=== PATIENT | female | born 1965 | race Caucasian/White ===

== ENCOUNTER 2017-09-07 14:56 | Emergency (ER) | payer OTHER, MEDICAID ==
[2017-09-07 14:56] VITALS: BMI 32.5
[2017-09-07 15:56] VITALS: BP 134/92; PULSE 90; RESP 18; TEMP 98; O2SAT 99
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
== END 2017-09-07 18:28 | disposition home or self-care (01) ==
LOC: H.ER 14:56
DX: S13.4XXA Sprain of ligaments of cervical spine, initial encounter (principal); V43.52XA Car driver injured in collision with other type car in traffic accident, initial encounter; Y92.410 Unspecified street and highway as the place of occurrence of the external cause; E03.9 Hypothyroidism, unspecified; F41.9 Anxiety disorder, unspecified; J45.909 Unspecified asthma, uncomplicated
CPT/HCPCS: 96372; 99285; J1885